=== PATIENT | female | born 1985 | race Caucasian/White ===

== ENCOUNTER 2021-12-19 15:41 | Inpatient (IN) | payer OTHER ==
[~2021-12-19] VITALS: Ht 149.9 cm; Wt 63.5 kg
[2021-12-19] MEDS ORDERED: LR 1,000 ML IV SCH (19:15)
[2021-12-19 19:40] VITALS: BP_SYST 111
[2021-12-19 19:52] LABS: WHITE BLOOD COUNT (AUTO) 7.6 K/uL (4.8-10.8)
[2021-12-19 19:57] LABS: CALCIUM 8.7 mg/dL (8.4-11.0); CREATININE 0.63 mg/dL (0.55-1.30); POTASSIUM 4.1 mmol/L (3.5-5.1)
[2021-12-19 20:03] LABS: ALBUMIN 2.9 g/dL (3.4-4.8); BASOPHILS % (AUTO) 0.1 % (0.0-2.0); EOSINOPHILS % (AUTO) 0.4 % (0.0-4.0); HEMATOCRIT 40.4 % (36-48); LYMPHOCYTES # (AUTO) 1.2 K/uL (1.0-5.5); LYMPHOCYTES % (AUTO) 15.8 % (20.5-51.5); MEAN CORPUSCULAR HEMOGLOBIN 26 pg (27-31); MEAN CORPUSCULAR HGB CONC 32 % (32-36); MEAN CORPUSCULAR VOLUME 82 fL (79.0-98.0); MONOCYTES # (AUTO) 0.6 K/uL (0.0-1.0); MONOCYTES % (AUTO) 7.4 % (1.7-9.3); NEUTROPHILS # (AUTO) 5.8 K/uL (1.8-7.7); NEUTROPHILS % (AUTO) 76.3 % (40.0-70.0); PLATELET COUNT (AUTO) 149 K/uL (130-430); RED BLOOD CELL COUNT(AUTO) 4.92 MIL/uL (4.2-6.2); RED CELL DISTRIBUTION WIDTH 15.8 % (9.0-15.0); TOTAL BILIRUBIN 0.1 mg/dL (0.0-1.0)
[2021-12-19] MEDS ORDERED: metFORMIN HCL 500 MG TABLET ONE (21:05)
[2021-12-20] MEDS ORDERED: OXYTOCIN/0.9 % SODIUM CHLORIDE 1,000 ML IV SCH (12:45)
[2021-12-20] MEDS ORDERED: metroNIDAZOLE 500 mg/NS 100 ML IV ONE (12:45)
[2021-12-20] MEDS ORDERED: AMPICILLIN SODIUM 2 GM in NS 100 ML IV ONE (12:45)
[2021-12-20] MEDS ORDERED: MORPHINE 4 MG INJ. 4 MG/ML VIAL IVP PRN (12:45)
[2021-12-20] MEDS ORDERED: TERBUTALINE SULFATE 1 MG/ML VIAL SUBCUT ONE (12:45)
[2021-12-20] MEDS ORDERED: ONDANSETRON HCL 4 MG/2 ML VIAL IVP PRN (15:30)
[2021-12-20] MEDS: AMPICILLIN SODIUM 1 GM in NS 50 ML IV SCH ×2 (18:37→22:44)
[2021-12-20] MEDS: LR 1,000 ML IV SCH (21:38)
[2021-12-21] MEDS ORDERED: NALOXONE HCL 0.4 MG/ML AMP (NARCAN) IVP PRN (03:30)
[2021-12-21] MEDS ORDERED: MORPHINE SULFATE 10 MG/ML VIAL IVP PRN (03:30)
[2021-12-21] MEDS ORDERED: LIGHT MINERAL OIL 10 ML VIAL MC ONE ×2 (04:07→07:00)
[2021-12-21] MEDS ORDERED: NALOXONE HCL 0.4 MG/ML AMP (NARCAN) ONE ×2 (04:07→07:00)
[2021-12-21] MEDS ORDERED: LIDOCAINE PF 1% 30ML(POUR BTL) INJ ONE ×2 (04:07→07:00)
[2021-12-21] MEDS: LR 1,000 ML IV SCH (06:13)
[2021-12-21] MEDS ORDERED: DIPH-TET-PERTUS Vaccine 0.5 ML VIAL (ADACEL) I.M. PRN (08:00)
[2021-12-21] MEDS ORDERED: RHO(D) IMMUNE GLOBULIN/MALTOSE 1500 UNITS/1.3 ML (WINHRO) IM PRN (08:00)
[2021-12-21] MEDS ORDERED: DERMOPLAST SPRAY TP PRN (08:00)
[2021-12-21] MEDS ORDERED: OXYTOCIN/0.9 % SODIUM CHLORIDE 1,000 ML IV ONE (08:00)
[2021-12-21] MEDS ORDERED: TEMAZEPAM 15 MG CAPSULE PO PRN (08:00)
[2021-12-21] MEDS ORDERED: WITCH HAZEL LEAF 1 MED.PAD MED.PAD TP PRN (08:00)
[2021-12-21] MEDS ORDERED: LANOLIN 7 GM OINT. TP PRN (08:00)
[2021-12-21] MEDS ORDERED: MEASLES,MUMPS&RUBELLA VACC/PF 12500 UNIT/0.5 ML VIAL SUBQ PRN (08:00)
[2021-12-21] MEDS ORDERED: OXYTOCIN/0.9 % SODIUM CHLORIDE 1,000 ML IV SCH (08:00)
[2021-12-21] MEDS ORDERED: HYDROCORTISONE 0.5% CREAM 28.4 GM CREAM.GM. TP PRN (08:00)
[2021-12-21] MEDS ORDERED: ANUSOL 1 EA SUPP.RECT (PREPARATION H) RC PRN (08:00)
[2021-12-21] MEDS ORDERED: HYDROcodone/ACETAMIN 5-325 MG TAB (NORCO/ VICODIN) PO PRN (08:30)
[2021-12-21] MEDS ORDERED: OXYCODONE/ACETAMINOPHEN 5-325 TABLET PO PRN (08:30)
[2021-12-21] MEDS: OXYCODONE/ACETAMINOPHEN 5-325 TABLET PO PRN ×2 (08:53→16:24)
[2021-12-21] MEDS ORDERED: DOCUSATE SODIUM 100 MG CAPSULE PO SCH (09:00)
[2021-12-21] MEDS: IBUPROFEN 600 MG TABLET PO SCH ×2 (12:05→18:19)
[2021-12-21] MEDS ORDERED: SENNOSIDES/DOCUSATE SODIUM 1 TAB TABLET(SENOKOT-S) PO SCH (21:00)
[2021-12-22] MEDS: IBUPROFEN 600 MG TABLET PO SCH ×2 (00:22→06:13)
[2021-12-22] MEDS: OXYCODONE/ACETAMINOPHEN 5-325 TABLET PO PRN ×2 (04:07→10:35)
[2021-12-22 07:27] LABS: HEMATOCRIT 35.4 % (36-48); HEMOGLOBIN 11.6 g/dL (12.0-16.0)
== END 2021-12-22 11:15 | disposition home or self-care (01) | DRG 806 ==
LOC: SPU 15:41 → OBSVTOIN 18:30 → SPU 12-21 16:56
PROVIDERS: ADMIT Obstetrics & Gynecology; ATTEND Obstetrics & Gynecology
PROC: 10E0XZZ Delivery of Products of Conception, External Approach (ICD-10-PCS; principal; 2021-12-22)
DX: O36.8130 Decreased fetal movements, third trimester, not applicable or unspecified (principal); O41.03X0 Oligohydramnios, third trimester, not applicable or unspecified; Z37.0 Single live birth; O24.429 Gestational diabetes mellitus in childbirth, unspecified control; Z20.822 Contact with and (suspected) exposure to COVID-19; Z3A.37 37 weeks gestation of pregnancy
CPT/HCPCS: 36415; 80053; 82962; 85018; 85025; 86886; 86900; 86901; 87081; G0378; J0290; J2001; J2270; J2310; J2590; J3490